=== PATIENT | male | born 1950 | race Caucasian/White ===

== ENCOUNTER 2018-10-17 07:57 | Day surgery (SDC) | payer MEDICARE ==
[2018-10-16 13:31] VITALS: BMI 40.7
[~2018-10-17 07:57] MED LIST: EPINEPHrine 0.3 MG, Dextrose 50% 3 ML in Ophthalmic Irrigation Solution 500 ML IVP SCH
[2018-10-17] MEDS ORDERED: Cyclopentolate 1% Opth Drop 2 ML BOT ONE (09:03)
[2018-10-17] MEDS ORDERED: Phenylephrine 2.5% Ophth Soln 5 ML BOT ONE (09:03)
[2018-10-17] MEDS ORDERED: Midazolam HCl 2 mg/2 ml Vial ONE ×2 (11:00→11:55)
[2018-10-17] MEDS ORDERED: PROPOFOL 20 ML ONE (11:00)
[2018-10-17] MEDS ORDERED: Lidocaine 2% PF 5 ML VIAL ONE (11:00)
[2018-10-17] MEDS ORDERED: Fentanyl 100 MCG/2 ML VIAL ONE ×2 (11:00→11:56)
--- NOTE | 2018-10-17 12:58 | OP ---
DATE OF PROCEDURE: 10/17/2018 PREOPERATIVE DIAGNOSIS: Vitreous hemorrhage, right eye. POSTOPERATIVE DIAGNOSIS: Vitreous hemorrhage, right eye. PROCEDURE PERFORMED: Pars plana vitrectomy, membrane peel, panretinal photocoagulation, right eye. ANESTHESIA: Local with monitored anesthesia care. PROCEDURE IN DETAIL: The patient was identified in the preoperative holding area. Appropriate informed consent for the planned surgical procedure on the right eye had been obtained. The patient was transported to the operative suite. Appropriate cardiopulmonary monitoring was established. Local anesthesia was obtained using retrobulbar modified Van Lint lid block using 50:50 mixture of 4% lidocaine, 0.75% bupivacaine. The patient was prepped and draped in usual sterile manner for ophthalmic surgery on the right eye. Lid speculum was placed in the right eye. A 25-gauge trocar was placed in the conjunctiva and sclera supratemporally, inferotemporally, and supranasally. Infusion line was placed inferotemporally. Light pipe and vitreous cutter were inserted into the eye. Core vitrectomy was performed. Retraction was noted temporally and nasally to the nerve. This was carefully dissected away from the retinal surface. The vessel was cauterized. No further bleeding was noted. Panretinal photocoagulation was placed in all non-macular areas of the retina up to the ora gino. The eye was noted to be otherwise stable. Trocars were removed. Eye was noted to retain pressure well. Retrobulbar Kenalog and subconjunctival Ancef were placed. Antibiotic ointment was placed. The eye was patched and shielded. The patient was taken to the postoperative recovery unit in good condition, having suffered no immediate perioperative complications. The patient was instructed to keep patch shield on. Avoid lifting or bending. Followup appointment with Dr. Oliveira. Job ID: [id number]
== END 2018-10-17 12:50 | disposition home or self-care (01) ==
LOC: SDC 07:57
PROVIDERS: ATTEND Ophthalmology Retina Specialist
PROC: 08T43ZZ Resection of Right Vitreous, Percutaneous Approach (ICD-10-PCS; principal; 2018-10-17)
PROC: 08QE3ZZ Repair Right Retina, Percutaneous Approach (ICD-10-PCS; 2018-10-17)
DX: H43.11 Vitreous hemorrhage, right eye (principal); E66.9 Obesity, unspecified; Z68.41 Body mass index [BMI] 40.0-44.9, adult
CPT/HCPCS: 36416; J0171; J2001; J2250; J2704; J3010

== ENCOUNTER 2020-06-01 07:01 | Day surgery (SDC) | payer MEDICARE ==
[2020-05-31 15:00] VITALS: BMI 43.2
[~2020-06-01 07:01] MED LIST changes: +EPINEPHrine 0.3 MG in Ophthalmic Irrigation Solution 500 ML IRR SCH; -EPINEPHrine 0.3 MG, Dextrose 50% 3 ML in Ophthalmic Irrigation Solution 500 ML IVP SCH; +Fentanyl 100 MCG/2 ML VIAL ONE; +Midazolam HCl 2 mg/2 ml Vial ONE
[2020-06-01] MEDS ORDERED: Cyclopentolate 1% Opth Drop 2 ML BOT ONE (07:30)
[2020-06-01] MEDS ORDERED: Phenylephrine 2.5% Ophth Soln 5 ML BOT ONE (07:30)
--- NOTE | 2020-06-01 09:23 | OP ---
DATE OF PROCEDURE: 06/01/2020 PRINCIPAL PREOPERATIVE DIAGNOSES: 1. Vitreous hemorrhage, right eye. 2. Proliferative diabetic retinopathy, right eye. POSTOPERATIVE DIAGNOSES: 1. Vitreous hemorrhage, right eye. 2. Proliferative diabetic retinopathy, right eye. PROCEDURES PERFORMED: 1. 25-gauge pars plana vitrectomy, right eye. 2. Panretinal photocoagulation, right eye. ESTIMATED BLOOD LOSS: None. SPECIMENS REMOVED: None. COMPLICATIONS: None. ANESTHESIA: MAC with sub-Tenon's block. the block consisted of 1:1 ratio of 4% lidocaine and 0.75% Marcaine. A total of 5 mL was administered. A standard 25-gauge pars plana vitrectomy platform was fashioned with trocars placed approximately 3.5 mm from the limbus. The infusion was noted to be within the vitreous cavity prior to being turned on to an infusion pressure of 30 mmHg. The light pipe and microvitrector were introduced in the eye under visualization of BIOM viewing system. A significant fundus obscuring vitreous hemorrhage was noted. A careful core vitrectomy was performed starting anteriorly and progressively moving posteriorly the view improved. A subsequent peripheral shave vitrectomy was performed, which allowed for complete visualization of the retina. The significant panretinal photocoagulation pattern was already in place. Preexisting panretinal photocoagulation Endolaser posterior to the preexisting laser as well as anterior to the preexisting laser with the use of scleral depression. Following laser, the cannulas were sequentially removed and superotemporal sclerotomy was sutured with 8-0 Vicryl suture. Following suturing, all sclerotomies were noted to be watertight. Supranasal sclerotomy was sutured. Subconjunctival Ancef and Kenalog were injected. The wire-clip lid speculum was removed followed by application of TobraDex ophthalmic ointment and a light patch and shield. The patient tolerated the procedure well and was taken to the outpatient recovery area in good condition. Job ID: [id number]
[2020-06-01] MEDS ORDERED: Triamcinolone 40 MG/ML VIAL ONE (10:18)
[2020-06-01] MEDS ORDERED: PROPOFOL 200 MG/20 ML VIAL ONE (10:18)
[2020-06-01] MEDS ORDERED: Maxitrol 0.1% Opth Oint 3.5 GM TUBE ONE (10:18)
[2020-06-01] MEDS ORDERED: Lidocaine 4% PF 5 ML AMP ONE (10:18)
[2020-06-01] MEDS ORDERED: Bupivacaine PF 0.75% SDV 10 ML ONE (10:18)
[2020-06-01] MEDS ORDERED: Lidocaine 1% PF 5 ML VIAL ONE (10:18)
[2020-06-01] MEDS ORDERED: CEFAZOLIN 1 GM VIAL ONE (10:18)
== END 2020-06-01 09:50 | disposition home or self-care (01) ==
LOC: SDC 07:01
PROVIDERS: ATTEND Ophthalmology Retina Specialist
PROC: 08T43ZZ Resection of Right Vitreous, Percutaneous Approach (ICD-10-PCS; principal; 2020-06-01)
PROC: 08QE3ZZ Repair Right Retina, Percutaneous Approach (ICD-10-PCS; 2020-06-01)
DX: E09.3 Drug or chemical induced diabetes mellitus with ophthalmic complications (principal); H43.11 Vitreous hemorrhage, right eye; Z79.4 Long term (current) use of insulin; Z79.01 Long term (current) use of anticoagulants; Z79.899 Other long term (current) drug therapy
CPT/HCPCS: J0171; J0690; J2250; J2704; J3010; J3301; J3490

== ENCOUNTER 2020-08-10 09:59 | Day surgery (SDC) | payer MEDICARE ==
[2020-08-09 14:07] VITALS: BMI 43.2
[2020-08-10] MEDS ORDERED: Phenylephrine 2.5% Ophth Soln 5 ML BOT ONE (11:12)
[2020-08-10] MEDS ORDERED: Cyclopentolate 1% Ophth Drops 15 ML BOT ONE (11:13)
[2020-08-10] MEDS ORDERED: Lidocaine 1% PF 5 ML VIAL ONE (11:53)
[2020-08-10] MEDS ORDERED: Triamcinolone 40 MG/ML VIAL ONE (11:53)
[2020-08-10] MEDS ORDERED: CEFAZOLIN 1 GM VIAL ONE (11:53)
[2020-08-10] MEDS ORDERED: Lidocaine 4% PF 5 ML AMP ONE (11:53)
[2020-08-10] MEDS ORDERED: Bupivacaine PF 0.75% SDV 10 ML ONE (11:53)
[2020-08-10] MEDS ORDERED: Maxitrol 0.1% Opth Oint 3.5 GM TUBE ONE (11:53)
[2020-08-10] MEDS ORDERED: PROPOFOL 200 MG/20 ML VIAL ONE (11:53)
== END 2020-08-10 13:10 | disposition home or self-care (01) ==
LOC: SDC 09:59
PROVIDERS: ATTEND Ophthalmology Retina Specialist
PROC: 08T53ZZ Resection of Left Vitreous, Percutaneous Approach (ICD-10-PCS; principal; 2020-08-10)
PROC: 08QF3ZZ Repair Left Retina, Percutaneous Approach (ICD-10-PCS; 2020-08-10)
DX: H43.12 Vitreous hemorrhage, left eye (principal); Z79.01 Long term (current) use of anticoagulants; Z79.4 Long term (current) use of insulin; Z79.899 Other long term (current) drug therapy
CPT/HCPCS: J0171; J0690; J2250; J2704; J3010; J3301; J3490

== ENCOUNTER 2021-06-07 06:46 | Day surgery (SDC) | payer MEDICARE ==
[2021-06-06 10:55] VITALS: BMI 44.4
[~2021-06-07 06:46] MED LIST changes: -Fentanyl 100 MCG/2 ML VIAL ONE; +Fentanyl 250 MCG/5 ML VIAL ONE
[2021-06-07] MEDS ORDERED: Phenylephrine 2.5% Ophth Soln 5 ML BOT ONE (07:02)
[2021-06-07] MEDS ORDERED: Cyclopentolate 1% Opth Drop 2 ML BOT ONE (07:02)
[2021-06-07] MEDS ORDERED: PROPOFOL 200 MG/20 ML VIAL ONE (08:31)
[2021-06-07] MEDS ORDERED: Lidocaine 1% PF 5 ML VIAL ONE (08:31)
[2021-06-07] MEDS ORDERED: Lidocaine 4% PF 5 ML AMP ONE (08:31)
[2021-06-07] MEDS ORDERED: Bupivacaine 0.75% 10 ML VIAL ONE (08:31)
[2021-06-07] MEDS ORDERED: Maxitrol 0.1% Opth Oint 3.5 GM TUBE ONE (08:31)
[2021-06-07] MEDS ORDERED: CEFAZOLIN 1 GM VIAL ONE (08:31)
[2021-06-07] MEDS ORDERED: Triamcinolone 40 MG/ML VIAL ONE (08:31)
== END 2021-06-07 09:40 | disposition home or self-care (01) ==
LOC: SDC 06:46
PROVIDERS: ATTEND Ophthalmology Retina Specialist
PROC: 08T43ZZ Resection of Right Vitreous, Percutaneous Approach (ICD-10-PCS; principal; 2021-06-07)
PROC: 08QE3ZZ Repair Right Retina, Percutaneous Approach (ICD-10-PCS; 2021-06-07)
DX: H43.11 Vitreous hemorrhage, right eye (principal); Z79.01 Long term (current) use of anticoagulants; Z79.4 Long term (current) use of insulin; Z79.84 Long term (current) use of oral hypoglycemic drugs; Z79.899 Other long term (current) drug therapy; Z95.1 Presence of aortocoronary bypass graft
CPT/HCPCS: 36416; J0171; J0690; J2250; J2704; J3010; J3301; J3490